=== PATIENT | male | born 1970 | race Caucasian/White ===

== ENCOUNTER 2019-03-29 20:01 | Emergency (ER) | payer OTHER ==
[~2019-03-29] VITALS: Ht 177.8 cm; Wt 78.5 kg
[2019-03-29 20:09] VITALS: Ht 177.8 cm; Wt 78.5 kg
[2019-03-29 23:20] VITALS: BP 134/80
== END 2019-03-29 23:20 | disposition home or self-care (01) ==
LOC: ED 20:01
DX: J32.9 Chronic sinusitis, unspecified (principal)
CPT/HCPCS: 36415